=== PATIENT | male | born 1960 | race Caucasian/White ===

== ENCOUNTER 2019-04-09 13:22 | Observation (INO) ==
[2019-04-09 13:47] LABS: BE 4.4 mmoll (-3.0-3.0); BLOOD TYPE ARTERIAL; HCO3-(ACT) 28.2 mmoll (20.0-26.0); METHB 0.9 % (0.0-1.5); O2(CT) 19.4 mL/dL (15.0-23.0); O2HB 93.2 % (95.0-99.0); PCO2(98.6) 43 mmHg (35-45); PO2(98.6) 69 mmHg (60-100); SAMPLE BLOOD; SAO2 96.7 % (95.0-100.0); THB 14.8 g/dL (11.5-17.4); pH(98.6) 7.44 (7.35-7.45)
[2019-04-09 13:49] LABS: ALLEN TEST YES; MODALITY ROOM AIR
[2019-04-09 14:32] LABS: BASO# 0.06 X1000 (0.0-0.2); BASO% 0.6 % (0.0-0.8); EOS# 0.53 X1000 (0.0-0.7); EOS% 5.5 % (0.0-10.0); HEMATOCRIT 41.6 % (42.0-52.0); HEMOGLOBIN 13.7 g/dL (14.0-18.0); IMM GRAN# 0.02 X1000 (0.0-0.04); IMM GRAN% 0.2 % (0.0-0.5); LYMPH# 1.81 X1000 (1.2-3.4); LYMPH% 18.6 % (20.5-51.1); MCH 27.7 PG (27-31); MCHC 32.9 g/dL (33-37); MCV 84.2 FL (81-99); MONO# 0.79 X1000 (0.11-0.59); MONO% 8.1 % (1.7-9.3); NEUT# 6.51 X1000 (1.4-6.5); PLT 274 X1000 (130-400); RBC 4.94 XMIL (4.7-6.1); RDW 12.5 % (11.5-14.5); WBC 9.72 X1000 (4.8-10.8)
[2019-04-09 14:42] LABS: ESTIMATED GFR > 60
[2019-04-09] MEDS ORDERED: HUMALOG (PARKWAY) SUBQ ONE (14:44)
[2019-04-09 14:45] LABS: AGAP 11; ALBUMIN 3.8 g/dL (3.5-5.0); ALKALINE PHOSPHATASE 83 U/L (32-122); AMYLASE 47 U/L (20-200); BUN 20 mg/dL (8-22); CALCIUM 10.6 mg/dL (8.8-10.2); CHLORIDE 97 mmol/L (98-107); COSMO 297; CREATININE 0.7 mg/dL (0.7-1.2); GLUCOSE 496 mg/dL (70-104); GOT 10 U/L (10-34); GPT 14 U/L (10-44); POTASSIUM 4.6 mmol/L (3.5-5.1); SODIUM 136 mmol/L (136-145); TCO2 27 mmol/L (25-35); TOTAL PROTEIN 6.2 g/dL (6.3-8.3)
[2019-04-09] MEDS ORDERED: ZOFRAN IV PRN (14:49)
[2019-04-09] MEDS ORDERED: TYLENOL PO PRN (14:49)
--- NOTE | 2019-04-09 14:58 | PROVIDER DOCUMENTATION ---
This chart was entered by Priya Harrington Scribe, acting as scribe for Austin Kemp MD. HPI-General Adult - General Chief Complaint: DKA ALERT Stated Complaint: NUMBNESS Time Seen by Provider: 04/09/19 13:45 Source: patient, EMS Allergies/Adverse Reactions: Patient Allergies Allergy/AdvReac Type Severity Reaction Status Date / Time No Known Allergies Allergy Verified 04/09/19 13:23 Home Medications: Home Medication List Medication Instructions Recorded Confirmed Last Taken Type ATORVAstatin [Lipitor] 40 mg PO QHS 04/09/19 04/09/19 Unknown History Metformin E.r. [Glucophage Xr] 500 mg PO BID CC 04/09/19 04/09/19 Unknown History RAMIpril [Altace] 5 mg PO DAILY 04/09/19 04/09/19 Unknown History - History of Present Illness -Gen Adult Nature of Presenting Problems: 58 y/o male presents to ED with slurred speech, LUE numbness, and L facial numbness onset just prior to arrival. Pt reports nausea and hyperglycemia onset this week. Pt denies any injuries. Pt is alert and oriented. Location of Pain/Injury: reports: none Pain Radiation: reports: no radiation Quality of Pain: reports: none Severity: reports: mild Onset/Duration: reports: just prior to arrival, last week Timing: reports: still present Context/Activities at Onset: reports: none Modifying Factors: improves with: nothing Associated Symptoms: reports: nausea, other (hyperglycemia; slurred speech; LUE/L facial numbness) Similar Symptoms Previously?: No Recently seen or treated by another doctor?: No - Diabetes Related Context Context: reports: high blood sugar Review of Systems - Adult - REVIEW OF SYSTEMS - ADULT Constitutional: denies: chills, fever Eyes: reports: no symptoms reported Ears, Nose, Mouth & Throat: reports: no symptoms reported Cardiovascular: denies: chest pain, palpitations Respiratory: denies: cough, shortness of breath Gastrointestinal: reports: nausea. denies: abdominal pain, diarrhea, vomiting Genitourinary: reports: no symptoms reported Musculoskeletal: reports: no symptoms reported Integumentary: reports: no symptoms reported Neurological: reports: numbness (LUE/L facial), slurred speech. denies: dizziness/vertigo, seizure Psychiatric: reports: no symptoms reported Endocrine: reports: other (hyperglycemia). denies: goiter Hematologic/Lymphatic: reports: no symptoms reported Allergic/Immunologic: reports: no symptoms reported All Other Systems: Reviewed and Negative Past History - Adult - PAST MEDICAL HISTORY-ADULT Review of Records: reports: Old Records Reviewed, Nursing Assessment Review, Medications Reviewed Major Childhood Illnesses: reports: denies history Cardiovascular: reports: HTN, hyperlipidemia Endocrine/Immune: reports: Diabetes - PRIOR SURGERIES/PROCEDURES Surgical/Procedure History: reports: none - IMMUNIZATION STATUS Childhood Immunizations: See Nurse Assessment Flu Vaccine: See Nurse Assessment - FAMILY HISTORY Family History: reviewed, not pertinent - SOCIAL HISTORY Smoking: greater than 1 pack/day Provider spent 3-5 mins advising pt. on dangers of tobacco.: Discussed manners to quit use, and f/u contacts for add'l counseling. Substance Use: none/never Alcohol Use Frequency: occasionally Living Situation: family Physical Exam-General - PHYSICAL EXAM-ADULT Initial Vital Signs Reviewed: Yes (bp 196/114; HR 108) - CONSTITUTIONAL General Appearance: appears well, alert, no apparent distress - EYES Eyes: PERRL/EOMI, pink conjunctivae - HEAD, EARS, NOSE, MOUTH & THROAT HENMT: normocephalic/atraumatic, moist mucous membranes, normal ENT inspection - NECK Neck: non-tender, full range of motion, carotid bruit (on the L) - RESPIRATORY Respiratory: chest non-tender, lungs clear, normal breath sounds - CARDIOVASCULAR Cardiovascular: tachycardia, systolic murmur - GASTROINTESTINAL (ABDOMEN) Abdominal Exam: normal bowel sounds, non tender, soft - MUSCULOSKELETAL Back Exam: normal inspection, no CVA tenderness, no vertebral tenderness Extremity: normal range of motion, non-tender - SKIN Integumentary: normal color, warm/dry - 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 as 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, grossly normal, no motor/sensory deficits - PSYCHIATRIC Psych/Mental Status: normal mood/affect, normal thought content, normal thought process, oriented x 3 Progress - PLAN OF CARE/RESULTS Progress/Plan/Lab Results: Vital Signs - 8 hr 04/09/19 13:20 Temperature 98 F Pulse Rate 99 H Respiratory Rate 18 Blood Pressure 163/85 O2 Sat by Pulse Oximetry 96 Laboratory Results - last 24 hr 04/09/19 13:22 Specimen Type ARTERIAL Sample Site L RADIAL pH 7.44 pCO2 43 pO2 69 HCO3 28.2 H Base Excess 4.4 H Oxyhemoglobin 93.2 L ABG O2 Sat (Calculated) 19.4 ABG O2 Saturation 96.7 ABG Carboxyhemoglobin 2.70 H ABG Methemoglobin 0.9 Boston Test YES A-a O2 Difference 27.0 Total Hemoglobin 14.8 Lactate 1.00 Blood Gas Modality ROOM AIR FiO2 % 21.0 Orders Category Date Time Status FSBS [Finger Stick Blood Sugar (ED)] DIRECTED Care 04/09/19 13:23 Active ABG [RESP] Routine Lab 04/09/19 13:22 Completed Laboratory Tests 04/09/19 04/09/19 04/09/19 12:25 12:25 13:22 WBC 9.72 RBC 4.94 Hgb 13.7 L Hct 41.6 L MCV 84.2 MCH 27.7 MCHC 32.9 L RDW Std Deviation 12.5 Plt Count 274 MPV 11.0 H Immature Gran % (Auto) 0.2 Neut % (Auto) 67.0 Lymph % (Auto) 18.6 L [place] % (Auto) 8.1 Eos % (Auto) 5.5 Baso % (Auto) 0.6 Immature Gran # (Auto) 0.02 Neut # (Auto) 6.51 H Lymph # (Auto) 1.81 [place] # (Auto) 0.79 H Eos # (Auto) 0.53 Baso # (Auto) 0.06 Specimen Type ARTERIAL Sample Site L RADIAL pH 7.44 pCO2 43 pO2 69 HCO3 28.2 H Base Excess 4.4 H Oxyhemoglobin 93.2 L ABG O2 Sat (Calculated) 19.4 ABG O2 Saturation 96.7 ABG Carboxyhemoglobin 2.70 H ABG Methemoglobin 0.9 Boston Test YES A-a O2 Difference 27.0 Total Hemoglobin 14.8 Lactate 1.00 Blood Gas Modality ROOM AIR FiO2 % 21.0 Sodium 136 Potassium 4.6 Chloride 97 L Carbon Dioxide 27 Anion Gap 11 BUN 20 Creatinine 0.7 Estimated GFR/1.73 m2 > 60 BUN/Creatinine Ratio 29 Glucose 496 H* Calculated Osmolality 297 Calcium 10.6 H Total Bilirubin 0.30 AST 10 ALT 14 Alkaline Phosphatase 83 Total Protein 6.2 L Albumin 3.8 Globulin 2.0 Albumin/Globulin Ratio 2.0 Amylase 47 Lipase 04/09/19 13:25 WBC RBC Hgb Hct MCV MCH MCHC RDW Std Deviation Plt Count MPV Immature Gran % (Auto) Neut % (Auto) Lymph % (Auto) [place] % (Auto) Eos % (Auto) Baso % (Auto) Immature Gran # (Auto) Neut # (Auto) Lymph # (Auto) [place] # (Auto) Eos # (Auto) Baso # (Auto) Specimen Type Sample Site pH pCO2 pO2 HCO3 Base Excess Oxyhemoglobin ABG O2 Sat (Calculated) ABG O2 Saturation ABG Carboxyhemoglobin ABG Methemoglobin Boston Test A-a O2 Difference Total Hemoglobin Lactate Blood Gas Modality FiO2 % Sodium Potassium Chloride Carbon Dioxide Anion Gap BUN Creatinine Estimated GFR/1.73 m2 BUN/Creatinine Ratio Glucose Calculated Osmolality Calcium Total Bilirubin AST ALT Alkaline Phosphatase Total Protein Albumin Globulin Albumin/Globulin Ratio Amylase Lipase 40 Result Diagrams: 04/09/19 12:25 04/09/19 12:25 - XRAY 1 XRAY Study: Chest Impression: See EMR Report ([facility] - [address] [place] [address], [address] [place] [id number] [facility] - [address] [place] [address] Department of Imaging Patient: WILL QUESADA Date: 04/09/19MR#: [id number] : 1960ADM Status: REG ERAcct#: [id number] Age/Sex: 58/MRoom/Bed: Loc: P.ED Ordering Physician: Austin Kemp MD Family Physician: None,PCP Reason for Procedure: cough ___ Signed CHEST-2 VIEWS - 04/09/2019 INDICATION: cough COMPARISON: None FINDINGS: The lungs are normally expanded and clear. Heart size and mediastinal contours are normal. No pneumothorax or pleural effusion. IMPRESSION: Negative exam. Electronically signed by Rey Chaudhary 04/09/2019 3:17 PM 04/09/19 3486 Interpreting Physician: Rey Chaudhary MD Dictated Date/Time: 04/09/19 [id number] cc: Austin Kemp MD; None,PCP) - CT/MRI 1 CT Study: Head Impression: See EMR Report ([facility] - [address] , [address], [place] [address] [facility] - [address] [place] [address] Department of Imaging Patient: WILL QUESADA Date: 04/09/19MR#: [id number] : 1960ADM Status: REG [facility]#: [id number] Age/Sex: 58/MRoom/Bed: Loc: P.ED Ordering Physician: Austin Kemp MD Family Physician: None,PCP Reason for Procedure: tia Signed CT HEAD W/O CONTRAST - 04/09/2019 INDICATION: tia COMPARISON: None FINDINGS: The ventricles and sulci are normal in size and contour. No intracranial mass or hemorrhage. The skull is intact. The sinuses mastoids and middle ears are clear. IMPRESSION: Negative exam. This exam was performed using automated exposure control, adjustment of mA or kV according to patient size, and/or use of iterative reconstruction technique Electronically signed by Rey Chaudhary 04/09/2019 2:58 PM 04/09/19 1458 Interpreting Physician: Rey Chaudhary MD Dictated Date/Time: 04/09/19 1453 cc: Austin Kemp MD; None,PCP) - CONSULTS/PCP/HOSPITALIST Notification #1 *Consult/PCP/Hospitalist*: TREMAYNE Henderson for hospitalist Time Discussed: 14:00 Consult Disposition: Admit Departure - Departure Date of Disposition Decision: 04/09/19 Time of Disposition Decision: 14:56 DIAGNOSIS: TIA (transient ischemic attack), Hyperglycemia Diabetes Qualifiers: Diabetes mellitus type: other specified (including RAZIA) Diabetes mellitus custodial insulin use: unspecified custodial insulin use status Diabetes mellitus complication status: with other specified complication Qualified Code(s): E13.69 - Other specified diabetes mellitus with other specified complication Disposition: ADMITTED INPATIENT 09 Certified Medical Emergency: Emergent Condition: Stable Referrals and Follow-Ups: None,PCP [Primary Care Provider] - Discharge Education: Steps to Quit Smoking, [id number] - Critical Care Note This patient required my direct & personal management of CC.: No Attestation - Physician/ KARTHIK Attestation Patient care was provided by Advanced Practice Provider:: No The physician spent face to face time with patient:: Yes Advanced Practice Provider documentation review:: Supervising physician onsite and consulted in the evaluation and care of this patient. The physician did have a face to face encounter with the patient. - NIH Stroke Scale NIH Type: Initial Evaluation Level of Consciousness: 0-Alert LOC Questions (ask month and age): 0-Answers Both Correctly LOC Commands (ask to open & close eyes;make a fist, let go): 0-Obeys Both Correctly Best Gaze (horizontal eye movement): 0-Normal Visual (use finger movement, counting or visual threat): 0-No Visual Loss Facial Palsy (show teeth or raise eyebrows & close eyes tght: 0-Symmetrical Movement Motor Function-left arm: 0-Normal Motor Function-right arm: 0-Normal Motor Function-left le-Normal Motor Function-right le-Normal Limb Ataxia([id number], or heel to turner): 0-No Ataxia Sensory(pin prick to face,arms,trunk,legs-compare side/side): 0-No Ataxia Best Language(name item/read sentence.Ex-Down to Earth): 0-No Aphasia Dysarthria(Pt read words or say words Ex.Mama,Tip-Top,Thanks: 0-Normal Articulation Extinction and Inattention: 0-Normal NIH Total Score: 0 Modified Milton Score Criteria: 0-no symptoms Stroke tPA Guidelines - Inclusion Criteria for IV tPA 18 years old or older: Yes Ischemic stroke with measurable deficit: No Onset <3 hours ago *OR* 3-4.5 hours ago: Yes - Exclusion Criteria for IV tPA Evidence of intracranial hemorrhage on CT: No Presentation suggest SAH: No CT reveals defined area of hypodensity: No Evidence of AVM, neoplasm, aneurysm: No Seizure at stroke onset: No Active internal bleeding or acute trauma: No Platelet Count Less Than 100,000: No Heparin Within Last 48 HRS (PTT >Lab normal limits): No INR > 1.7 (warfarin use): No Use IIB/IIIA inhibitors within 24 hours: No Serious Head Trauma Within Last 3 Months: No Arterial Puncture Within Last 7 Days: No Lumbar Puncture Within Last 7 Days: No Repeated systolic Blood Pressure >185 or Diastolic >110: Yes - Additional Exclusion Criteria for IV tPA Currently on Coumadin: No Patient older than 80: No Prior stroke and diabetes: Yes Baseline NIHSS score > 25: No - Relative Contraindications to IV tPA CT reveals extensive area of infarct (>1/3 MCA territory): No Minor or rapidly improving stroke symptoms: Yes Major Surgery or Serious Trauma In Previous 14 Days: No AMI within 3 months: No Gastrointestinal or Urinary Tract hemorrhage in Past 21 Days: No Post - AMI pericarditis: No Blood Glucose Less Than 50 mg/dl or Greater Than 400 mg/dl: No - Consultation Candidate for:: NOT A CANDIDATE Reason not a candidate:: NIH score of 0. Minor/rapidly improving symptoms. This chart was documented by the indicated scribe, (Priya Harrington Scribe) and accurately reflects the services I performed and decisions made by me, Austin Kemp MD, as attested by the provider's signature.
--- NOTE | 2019-04-09 15:20 | Diag Imaging Result Doc PS360 ---
CHEST-2 VIEWS - 04/09/2019 INDICATION: cough COMPARISON: None FINDINGS: The lungs are normally expanded and clear. Heart size and mediastinal contours are normal. No pneumothorax or pleural effusion. IMPRESSION: Negative exam. Electronically signed by Rey Chaudhary 04/09/2019 3:17 PM
[2019-04-09] MEDS ORDERED: APRESOLINE IV ONE (15:36)
[2019-04-09] MEDS ORDERED: HUMALOG (PARKWAY) SUBQ SCH (16:00)
[2019-04-09] MEDS ORDERED: APRESOLINE IV PRN (16:22)
[2019-04-09] MEDS ORDERED: FLU VACCINE IM ONE (17:01)
[2019-04-09] MEDS ORDERED: PNEUMOVAX 23 IM ONE (17:03)
[2019-04-09] MEDS ORDERED: ASPIRIN PO ONE (17:18)
[2019-04-09] MEDS: GLUCOPHAGE XR PO SCH (17:26)
[2019-04-09] MEDS: HUMALOG (PARKWAY) SUBQ SCH ×2 (17:27→20:18)
--- NOTE | 2019-04-09 18:42 | HISTORY AND PHYSICAL ---
ADDENDUM: The patient presented to the hospital with left upper extremity and some mild left lower extremity weakness. Notes his symptoms are improving. Notes his blood sugars have been in the 500s when he got to the ER, and in the 300s and 400s at home. We are going to admit him to the hospital, place him on sliding scale insulin, control his blood sugar, and will follow. cc: Wily Thomas MD
--- NOTE | 2019-04-09 18:49 | HISTORY AND PHYSICAL ---
PRIMARY CARE PROVIDER: Dr. Mcmullen. CHIEF COMPLAINT: Left-handed weakness. HISTORY OF PRESENT ILLNESS: Mr. Liriano is a 58-year-old gentleman who carries a past medical history of hypertension, diabetes mellitus, and hyperlipidemia who reports around 11:00 a.m. today he was holding his coffee cup and could not control it and at the same time he felt a numbness on the left side of his face and in his mouth. He questioned if he was having some slurred speech. He felt kind of dreamy headed. These symptoms lasted for about 10 or 15 minutes. They completely resolved by the time the ambulance got there. Upon arrival to the ED his blood pressures were 200s over 100s. I believe he went ahead and took his own home medication which was 10 mg of his Altace. He was found to be hyperglycemic with blood sugars in the 400s. He was ruled out for DKA. He was given 15 units of insulin. His head CT does not show any acute stroke. He will be admitted for a full neurological workup. PAST MEDICAL HISTORY: Per HPI. PAST SURGICAL HISTORY: Right cataract surgery. FAMILY HISTORY: No coronary artery disease. Father of liver cancer at the age of 62. His maternal grandmother had diabetes mellitus. SOCIAL HISTORY: He is . He works for [employer]. He does smoke cigarettes and has done so for several years. On a work day he smokes 10 per day; however, on an off day he is a 1 pack per day smoker. ALLERGIES: No known drug allergies. HOME MEDICATIONS: 1. Lipitor 40 mg p.o. at bedtime. 2. Altace 10 mg p.o. daily. 3. Glucophage XR 500 mg p.o. b.i.d. REVIEW OF SYSTEMS: On twelve-point review of systems, the patient denied any chest pain, shortness of breath, fever, chills, or headache. He did report some dry heaves yesterday. He has had some nausea over the past week secondary to sinus drainage, but no diarrhea or constipation. No dysuria. No bright red or dark tarry stools. PHYSICAL EXAMINATION: VITAL SIGNS: Temperature is 97.5 degrees, heart rate 97, respirations 18, blood pressure 139/73, and O2 is 99% on room air. GENERAL: Mr. Liriano is a pleasant, 58-year-old, male who is sitting up in the stretcher in no acute distress. HEENT: Atraumatic, normocephalic. PERRL. NECK: Supple. Trachea midline. CARDIOVASCULAR: S1, S2 appreciated. There was a positive murmur. Possible bruit on the left. GASTROINTESTINAL: Soft, nontender, nondistended. Positive bowel sounds in 4 quadrants. EXTREMITIES: Lower extremities were negative for edema. NEUROLOGIC: The patient was awake, alert, oriented x4. Followed commands. Moved all extremities. Answered all questions appropriately. Upper extremity strength 5/5. Lower extremity strength 5/5. Shoulder shrug strength was intact. Tongue was midline. Smile was symmetrical. There was no slurring of the speech. No facial drooping. DIAGNOSTIC DATA: Chest x-ray: Negative examination. Head CT: Negative examination. LABORATORY DATA: White count 9, hemoglobin and hematocrit 13 and 41, platelet count is 274,000. Sodium 136, potassium 4.6, BUN 20, creatinine 0.7, blood glucose was initially 496. ASSESSMENT AND PLAN: 1. Cerebrovascular accident and transient ischemic attack rule out. Head CT is currently negative. We have done a full neurological workup. We have ordered echocardiogram as well as carotid Dopplers. We will continue with frequent neurologic checks. We will check a lipid profile. Continue him on aspirin and a statin. Check a brain MRA/MRI on Thursday. 2. Uncontrolled diabetes mellitus type 2 with hyperglycemia. We will check a hemoglobin A1c. Place him on sliding scale with pattern blood sugars. Continue his home metformin. 3. Uncontrolled hypertension. We will continue his home Altace. Do Apresoline p.r.n. We will allow for some permissive hypertension for 24 hours. However, we may have to add another blood pressure medication after that. 4. Hyperlipidemia. We will check a lipid profile. Further recommendation to follow physician evaluation, laboratory, and diagnostic data. Dictated by TREMAYNE Rodriguez for Wily Thomas MD cc: MD Lopez Burk MD MTDD
[2019-04-09] MEDS ORDERED: AYR NASAL SPRAY NAS PRN (20:31)
--- NOTE | 2019-04-09 20:56 | EKG Report ---
Test Performed on : 04/09/2019 7:12:13 PM Test Reason : emboli Blood Pressure : / mmHG Vent. Rate : 098 BPM Atrial Rate : 098 BPM P-R Int : 158 ms QRS Dur : 094 ms QT Int : 344 ms P-R-T Axes : 049 088 082 degrees QTc Int : 439 ms Normal sinus rhythm. Nonspecific ST and T wave abnormality Abnormal ECG No previous ECGs available Confirmed by Austin Kemp MD ([id number]) on 04/21/2019 1:51:23 AM
[2019-04-09] MEDS ORDERED: LIPITOR PO SCH ×2 (21:00)
[2019-04-10] MEDS ORDERED: AMBIEN PO PRN (00:47)
[2019-04-10] MEDS: HUMALOG (PARKWAY) SUBQ SCH ×2 (06:03→11:31)
[2019-04-10 06:44] LABS: HEMATOCRIT 36.5 % (42.0-52.0); HEMOGLOBIN 11.9 g/dL (14.0-18.0); MCH 27.4 PG (27-31); MCHC 32.6 g/dL (33-37); MCV 84.1 FL (81-99); MPV 10.7 FL (7.4-10.4); RBC 4.34 XMIL (4.7-6.1); RDW 12.5 % (11.5-14.5); WBC 9.64 X1000 (4.8-10.8)
[2019-04-10 06:50] LABS: AGAP 11; BUN 25 mg/dL (8-22); CALCIUM 10.5 mg/dL (8.8-10.2); CHLORIDE 100 mmol/L (98-107); COSMO 288; CREATININE 0.7 mg/dL (0.7-1.2); ESTIMATED GFR > 60; GLUCOSE 279 mg/dL (70-104); SODIUM 137 mmol/L (136-145); TCO2 27 mmol/L (25-35)
[2019-04-10 07:14] LABS: HEMOGLOBIN A1C 10.8 % (4.8-6.0)
[2019-04-10] MEDS ORDERED: ZOFRAN IV PRN (08:24)
[2019-04-10] MEDS ORDERED: ALTACE PO SCH ×2 (09:00→21:00)
[2019-04-10] MEDS ORDERED: ASPIRIN PO SCH (09:00)
[2019-04-10] MEDS: GLUCOPHAGE XR PO SCH (09:31)
[2019-04-10] MEDS ORDERED: JANUVIA PO SCH (09:45)
[2019-04-10 11:59] VITALS: BP 182/81
--- NOTE | 2019-04-10 14:20 | DISCHARGE SUMMARY ---
ADMISSION DATE: 04/09/2019 DISCHARGE DATE: 04/10/2019 ADDENDUM: Patient seen and examined. Full note dictated by nurse practitioner. Patient currently is awake, alert. All of his neurologic symptoms have resolved. No distress. Blood sugars were elevated with an A1c of 10.6. We have added Januvia. Blood pressure is also elevated. We have increased Altace to 5 twice daily. He will follow up outpatient with his primary care and adjust as needed. cc: Wily Thomas MD
--- NOTE | 2019-04-10 15:11 | DISCHARGE SUMMARY ---
ADMISSION DATE: 04/09/2019 DISCHARGE DATE: 04/10/2019 PRIMARY CARE PROVIDER: Dr. Lopez Mcmullen. PERTINENT PROCEDURES: 1. Head CT negative exam. 2. Echocardiogram has been performed. Did not have those results. 3. Chest x-ray negative exam. DISCHARGE DIAGNOSES: 1. Left upper extremity and some mild left lower extremity weakness as well as some accelerated blood pressure upon arrival. The patient's symptoms lasted only about 10 to 15 minutes at maximum, completely resolved by the time EMS got to his residence and has not returned. He has been symptomatic free since. He is wishing to be discharged home today and follow up with his primary care provider and would like to have his carotid Doppler done as an outpatient and he will continue on his home medications. 2. Uncontrolled diabetes mellitus type 2 with hyperglycemia and hemoglobin A1c of 10.3. He will continue on metformin, diabetic diet we have added Januvia. 3. Hyperlipidemia. We have added Lipitor. 4. Uncontrolled hypertension, improved. HOSPITAL COURSE: Briefly, Mr. Liriano is a 58-year-old gentleman with a past medical history of hypertension, diabetes mellitus, and hyperlipidemia, who reported around 11 a.m. yesterday morning he was holding his coffee cup and could not control it and at the same time he felt numbness on the left side of his body and his face and mouth. He questioned if he was having some type of slurred, slurred speech. He felt kind of dreamy headed. The symptoms lasted for about 10 to 15 minutes and completely resolved by the time the ambulance got there. Upon arrival to the ED, his blood pressures were 200's/100's. He went ahead and took his own home medications, which was 10 of Altace. He was found to be hyperglycemic with blood sugars in the 400s. He was ruled out for DKA, was given 15 units of insulin. His head CT did not show any acute stroke. We initially admitted him for a full neurological workup. His head CT did not show anything acute. He had his echocardiogram this a.m. He has remained symptomatic free since his admission. Blood pressures are under control. We have added Januvia to his diabetic regimen and he will follow up with Dr. Lopez Mcmullen to get his carotid Doppler for an outpatient diagnostic. VITAL SIGNS: At the time of his discharge: Temperature is 97.6 degrees, heart rate 94, respirations 18, blood pressure 182/81, O2 is 100% on room air. DISCHARGE DIET: Diabetic. DISCHARGE MEDICATIONS: 1. Lipitor 40 mg p.o. at bedtime. 2. Altace 5 mg p.o. b.i.d. 3. Glucophage XR 500 mg p.o. b.i.d. 4. Januvia 100 mg p.o. daily. FOLLOWUP: Mr. Liriano is being discharged back home with self care. He is to follow up with his primary care provider, Dr. Lopez Mcmullen and 1 to 2 weeks as well as have his carotid Doppler set up with his PCP. He can return to the ED or call 911 for any worsening of symptoms. Dictated by TREMAYNE Rodriguez for Wily Thomas MD cc: MD Lopez Burk MD
--- NOTE | 2019-04-11 07:44 | ECHO REPORT ---
ORDER DATE: 04/09/2019 INTERPRETING PHYSICIAN: Dr. Sarabia REQUESTING PHYSICIAN: CLINICAL INDICATIONS: This is a 58-year-old male with transient ischemic attack, diabetes mellitus. M-MODE MEASUREMENTS: Right ventricle: cm. Left ventricle end diastole: 4.5 cm. Left ventricle end systole: 3.1 cm. Posterior wall: 1.2 cm. Interventricular septum: 1.3 cm. Left atrium: 3.6 cm. Aortic root: 3.2 cm. SUMMARY OF 2-DIMENSIONAL IMAGIN. The left ventricular function globally appears to be normal. Ejection fraction is estimated at 55% to 60%. There is a focal area of akinesis at the level of the basal inferior wall consistent with a previous focal myocardial infarction. The chamber is not significantly dilated. There is mild enlargement of it. 2. Aortic valve shows sclerosis of the cusps without stenosis. 3. Mitral valve looks normal. Color flow mapping indicates no significant regurgitation. 4. Pulse wave Doppler of mitral inflow shows reversal of the E and the A ratio. The ratio is 0.7. 5. Tissue Doppler of septal and lateral mitral annulus averages 5.5 cm. 6. Pulmonic valve is normal. Color flow mapping is unremarkable. 7. The color flow mapping of the aortic valve is unremarkable also. 8. Tricuspid valve shows a mild degree of regurgitation. 9. The inferior vena cava is not dilated. 10.Pulmonary pressure is estimated at 23 to 28 mmHg. 11.There is no pericardial effusion, mass or thrombus. 12.The atria did not appear to be significantly enlarged. Clinical correlation is recommended. cc: Alcides Sarabia MD
== END 2019-04-10 14:03 | disposition home or self-care (01) ==
LOC: P.ED 13:22 → P.MEDSURG 13:23 → INTOOBSV 13:23
PROVIDERS: ATTEND Family Medicine